=== PATIENT | female | born 1935 | race Caucasian/White ===

== ENCOUNTER 2018-04-15 09:09 | Emergency (ER) | payer MEDICARE, BC ==
[2018-04-15 09:41] LABS: #Basophils 0.1 thou/uL (0.0-0.2); #Lymphocytes 0.9 thou/uL (1.20-3.40); #Monocytes 0.4 thou/uL (0.11-0.59); #Neutrophils 5.9 thou/uL (1.40-6.50); %Basophils 0.7 % (0.0-1.0); %Eosinophils 0.7 % (0.0-10.0); %Lymphocytes 12.7 % (21.0-51.0); %Monocytes 5.2 % (0.0-10.0); %Neutrophils 80.8 % (42.0-75.0); Hemoglobin 13.5 g/dL (12.0-16.0); Mean Corpuscular HGB CONC 34.2 g/dL (32.0-36.0); Mean Corpuscular Hemoglobin 31.8 pg (27.0-31.0); Mean Platelet Volume 6.6 fL (7.4-10.4); Platelet Count 203 thou/uL (130-400); RBC Distribution Width 11.5 % (11.5-14.5); Red Blood Cell (RBC) Count 4.25 mill/uL (4.20-5.40); White Blood Cell (WBC) Count 7.3 thou/uL (4.8-10.8)
[2018-04-15 10:07] LABS: ALT (SGPT) 76 U/L (8-55); AST (SGOT) 57 U/L (5-34); Alkaline Phosphatase 58 U/L (40-150); Anion Gap 10 mmol/L (10-20); BUN (Urea Nitrogen) 18 mg/dL (9.8-20.1); Bilirubin, Total 0.9 mg/dL (0.2-1.2); Calc. Creatinine Clearance 0 mL/min (70-130); Calcium 9.6 mg/dL (7.8-10.44); Carbon Dioxide 25 mmol/L (23-31); Chloride 107 mmol/L (98-107); Estimated GFR-MDRD 52; Glucose 112 mg/dL (83-110); Potassium 4.3 mmol/L (3.5-5.1); Sodium 138 mmol/L (136-145)
[2018-04-15 10:11] LABS: CKMB 1.1 ng/mL (0-6.6); Troponin I Less than 0.010 ng/mL (< 0.028)
[2018-04-15 10:40] LABS: Bilirubin Negative (Negative); Blood, Urine Moderate (Negative); Clarity Cloudy (Clear); Glucose, Urine (Dipstick) Negative (Negative); Hyaline Casts/LPF 4-6 HYALINE CAST LPF (0-3 Hyaline); Leukocyte Large (Negative); Nitrite Positive (Negative); Pathc Cast-AUWi Flag 1.05 (0-2.49); Protein, Urine (Dipstick) Trace mg/dL (Neg-Trace); Specific Gravity, Urine 1.025 (1.005-1.030); Urobilinogen 0.2 mg/dL (0.2-1.0)
[2018-04-15 10:43] LABS: Yeast-AUWi Flag 42.9 (0-25.0)
[2018-04-15 10:53] LABS: Bacteria/HPF 2+ HPF (None Seen); Yeast-All Forms None Seen HPF (None Seen)
--- NOTE | 2018-04-15 11:58 | CT ---
NONCONTRAST HEAD CT: HISTORY: Headache, right-sided. COMPARISON: 06/29/16. FINDINGS: No parenchymal hemorrhage. No extraaxial hematoma. No midline shift. Age-appropriate atrophy. Not e, atrophy involves the frontal lobe greater than the temporal or parietal lobes. Correlate for poss ible Alzheimer's dementia. White matter hypodensities due to chronic small-vessel ischemic changes are noted. No evidence of hy drocephalus. Stable calcifications of the choroid plexus. Adequate aeration of the sinuses and mastoid air cells. Cavernous carotid atherosclerosis is noted. The calvarium is intact. IMPRESSION: 1. Chronic small-vessel ischemic changes of the white matter. 2. Atrophy, similar to the previous examination. 3. No acute cardiopulmonary process. POS: [facility]
[2018-04-15] MEDS ORDERED: Acetaminophen 500 MG TAB ONE (14:03)
== END 2018-04-15 14:09 ==
LOC: ERS 09:09
DX: N30.00 Acute cystitis without hematuria (principal); E78.5 Hyperlipidemia, unspecified; Z79.899 Other long term (current) drug therapy
CPT/HCPCS: 36415; 70450; 80053; 81003; 81015; 82553; 84484; 85025; 85652; 93005; 96365; J1956

== ENCOUNTER 2018-05-13 19:47 | Inpatient (IN) | payer MEDICARE, BC ==
--- NOTE | 2018-05-13 21:18 | RAD ---
RADIOGRAPH LEFT HIP 2 VIEWS: DATE: 05/13/18 TIME: 8:38 p.m. HISTORY: Acute, traumatic, left hip pain due to fall. FINDINGS: There is a comminuted intertrochanteric fracture, with greater than one full shaft width medial displ acement of the distal fragment, and somewhat severe lateral angulation of the fracture apex. There is overlap of fracture fragments (foreshortening). No dislocation of the hip joint. IMPRESSION: Acute, traumatic, comminuted, significantly displaced, and angulated left intertrochanteric femoral f racture. POS: [facility]
[2018-05-13 21:31] LABS: #Eosinphils 0.2 thou/uL (0.0-0.7); #Monocytes 0.5 thou/uL (0.11-0.59); %Basophils 0.3 % (0.0-1.0); %Eosinophils 1.4 % (0.0-10.0); %Lymphocytes 9.7 % (21.0-51.0); %Monocytes 4.5 % (0.0-10.0); %Neutrophils 84.1 % (42.0-75.0); Hemoglobin 11.3 g/dL (12.0-16.0); Mean Corpuscular HGB CONC 33.5 g/dL (32.0-36.0); Mean Corpuscular Hemoglobin 31.5 pg (27.0-31.0); Mean Platelet Volume 6.5 fL (7.4-10.4); Platelet Count 208 thou/uL (130-400); RBC Distribution Width 11.4 % (11.5-14.5); White Blood Cell (WBC) Count 10.7 thou/uL (4.8-10.8)
[2018-05-13 21:34] LABS: INR-International Normal Ratio 1.2; PTT 28.4 SEC (22.9-36.1)
[2018-05-13 21:52] LABS: ALT (SGPT) 43 U/L (8-55); AST (SGOT) 47 U/L (5-34); Albumin 3.3 g/dL (3.4-4.8); Alkaline Phosphatase 64 U/L (40-150); Anion Gap 11 mmol/L (10-20); BUN (Urea Nitrogen) 19 mg/dL (9.8-20.1); Bilirubin, Total 0.5 mg/dL (0.2-1.2); CK (CPK) 85 U/L (29-168); Calc. Creatinine Clearance 0 mL/min (70-130); Calcium 8.5 mg/dL (7.8-10.44); Carbon Dioxide 24 mmol/L (23-31); Chloride 113 mmol/L (98-107); Estimated GFR-MDRD 48; Globulin 2.9 g/dL (2.4-3.5); Glucose 138 mg/dL (83-110); Protein, Total 6.2 g/dL (6.0-8.3); Sodium 144 mmol/L (136-145)
[2018-05-13 21:57] LABS: CKMB 1.5 ng/mL (0-6.6); Troponin I Less than 0.010 ng/mL (< 0.028)
[2018-05-13 23:06] LABS: Magnesium 1.5 mg/dL (1.6-2.6); Phosphorus 3.1 mg/dL (2.3-4.7)
[2018-05-13] MEDS ORDERED: hydrALAZINE 20 MG/ML VIAL SLOW IVP PRN (23:20)
[2018-05-13] MEDS ORDERED: Dextrose 50% Abboject 50 ML SYRINGE SLOW IVP PRN (23:20)
[2018-05-13] MEDS ORDERED: Dextrose 5% in Water 1,000 ML IV PRN (23:20)
[2018-05-13] MEDS: Sodium Chloride 0.9% 1,000 ML IV SCH (23:47)
[2018-05-13] MEDS: Acetaminophen 1,000 MG in Premix Bag 1 BAG IVPB SCH (23:48)
[2018-05-13] MEDS ORDERED: Magnesium 2 GM/NS 0.9% 100 ML 2 GM in Premix Bag 1 BAG IVPB SCH (23:59)
[2018-05-14 00:13] VITALS: BMI 24.5
[2018-05-14] MEDS: Acetaminophen 1,000 MG in Premix Bag 1 BAG IVPB SCH ×4 (05:01→23:01)
[2018-05-14 06:02] LABS: Anion Gap 9 mmol/L (10-20); BUN (Urea Nitrogen) 19 mg/dL (9.8-20.1); Calc. Creatinine Clearance 45 mL/min (70-130); Calcium 8.4 mg/dL (7.8-10.44); Carbon Dioxide 27 mmol/L (23-31); Chloride 110 mmol/L (98-107); Estimated GFR-MDRD 57; Glucose 138 mg/dL (83-110); Magnesium 2.3 mg/dL (1.6-2.6); Phosphorus 3.3 mg/dL (2.3-4.7); Potassium 4.3 mmol/L (3.5-5.1); Sodium 142 mmol/L (136-145)
--- NOTE | 2018-05-14 06:11 | HP ---
DATE OF ADMISSION: 05/13/2018 ADMITTING PHYSICIAN: Dr. Ernie Mares. CONSULTING PHYSICIAN: 1. Hever Rod, orthopedics. 2. Cardiology. HISTORY OF PRESENT ILLNESS: Ms. Saleh 83-year-old female who reports that she was outside walking her dog and when she went to step up on the concrete to enter the house. She saw a snake lying on th e concrete. This startled her and she fell onto her left hip. She did not have any LOC. There were no other reported injuries. She was able to scoot herself into the house after about 1 hour, was ab le to reach the telephone and summon EMS. She was transported to [facility], ere a left intertrochanteric hip fracture was identified. Dr. Rod was consulted by the ER physi [facility]. Trauma services has been consulted for admission and management. PAST MEDICAL HISTORY: 1. GA 2002. 2. Gastroesophageal reflux disease. 3. Hyperlipidemia. 4. Irregular heartbeat. PAST SURGICAL HISTORY: 1. Cardiac stent x2. 2. Appendectomy. 3. Cholecystectomy. 4. Tonsillectomy. 5. 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 6. Patient had cardiac arrest x2 with previous surgery. MEDICATIONS: 1. Crestor 20 mg daily. 2. Metoprolol XR 25 mg daily. 3. Aspirin 81 mg daily. 4. Multivitamin daily. ALLERGIES: PENICILLIN. LABORATORY DATA: EKG paced rhythm, rate 70. LABORATORY STUDIES: CBC: WBC 10.7, RBC 3.60, hemoglobin 11.3, hematocrit 33.8, platelets 208. Coag s: PT 15.0, INR 1.2. Chemistry: Sodium 144, potassium 4.0, chloride 113, carbon dioxide 24, BUN 19 , creatinine 1.09, glucose 138, calcium 8.5, phosphorus 3.1, magnesium 1.5. Total bilirubin 0.5, AST 47, ALT 43, alkaline phosphatase 64, creatine kinase 85, CK-MB 1.5, troponin 0.010. REVIEW OF SYSTEMS: Constitutional: Patient denies chills, fever, recent weight loss, or generalized malaise. HEENT: Denies otorrhea, rhinorrhea, blurred vision, sore throat. Cardiovascular: Denies chest pain, syncope, or palpitations. Reports pacemaker in place. Respiratory: Denies shortness o f breath, cough, wheezing. Gastrointestinal: Denies abdominal pain, nausea, vomiting, diarrhea, or constipation. Musculoskeletal: Reports fall left hip pain. Skin: Denies rash or skin changes. Ne urologic: Denies dizziness, headaches, focal weakness. Heme/Lymphatic: Denies abnormal bleeding. PHYSICAL EXAMINATION: VITAL SIGNS: Blood pressure 143/69, pulse 71, respirations 18, temperature 98.2, O2 sat 94% room air . CONSTITUTIONAL: Elderly female lying on bed, in no acute distress. HEENT: Atraumatic, normocephalic. Trachea midline. No posterior neck tenderness. RESPIRATORY: Bilateral breath sounds clear. No respiratory distress. CARDIOVASCULAR: Regular rate and rhythm. Heart sounds normal. ABDOMEN: Soft, nontender, nondistended. Pelvis stable. Pain with palpation of left hip. EXTREMITIES: Cap refill brisk in all extremities. Neurovascular intact all extremities. External r otation, left hip. NEUROLOGIC: GCS 15. Awake, alert, oriented x3. SKIN: Warm and dry, normal in color. ASSESSMENT AND PLAN: 1. An 83-year-old female, status post ground level fall. 2. Left intertrochanteric hip fracture. 3. History of cardiac arrest with previous surgery. 4. History of myocardial infarction with stent placement and pacemaker. 5. Acute traumatic pain. 6. Hypomagnesemia. PLAN: 1. Admit to surgical floor by Trauma Services. 2. Consult to Dr. Rod, orthopedics. 3. Consult to Cardiology. 4. Correct the abnormal electrolytes. 5. N.p.o., IV fluids, IV analgesia. 6. Physical and occupational therapy with orthopedic restrictions postoperatively. 7. Resume home medications as appropriate. Patient was reviewed with Dr. Mares, who agrees with plan.
[2018-05-14] MEDS ORDERED: Famotidine/PF 20 mg/2ml Vial SLOW IVP SCH (09:00)
[2018-05-14] MEDS: Sodium Chloride 0.9% 1,000 ML IV SCH ×3 (09:30→23:08)
[2018-05-14] MEDS ORDERED: Clindamycin/D5W 900 MG in Premix Bag 1 BAG IVPB SCH (10:30)
--- NOTE | 2018-05-14 10:52 | CON ---
DATE OF CONSULTATION: 05/14/2018 REQUESTING PHYSICIAN: Trauma Service. CONSULTING PHYSICIAN: Dr. Hever Rod REASON FOR CONSULTATION: Left hip fracture. HISTORY OF PRESENT ILLNESS: This is an 83-year-old female who was taking care of a friend's dog yest yamil when she took the dog outside to go the bathroom. She saw a snake lying on the step outside of her house. This startled her and she fell landing onto her left hip. She denies any loss of consci ousness at the time of the fall. She states that she was able to scoot herself inside of her house a nd call for help. She was transported to the [facility] where a left intertroch anteric hip fracture was identified. We have been consulted for this reason. At bedside, the patien t states she is comfortable. She currently resides in [place], [place]. She lives alone and use s a walker for ambulation. Of note, she does state that she recently had a urinary tract infection a nd was admitted into rehab. She was discharged from rehab approximately 8 days ago. She has been go ing to outpatient physical therapy. She normally ambulates without any assistance, but has been usin g a rolling walker because of this reason. She denies any head injury or numbness, tingling in her l eft lower extremity. She denies any other orthopedic injuries at this time. The patient does mention that she has had a history of a hiatal hernia repair in the past at our faci lity by Dr. Garcia. She states that she went into cardiac arrest twice while on the operating room ta ble. Her normal die repairer trimmer dies is Dr. Charles. PAST MEDICAL HISTORY: Significant for a [place] in 2002 with stent placement, gastroesophageal reflux dis ease, hyperlipidemia, hypertension for which the patient has been recently taken off of her beta bloc ker. Irregular heartbeat. Orthopedic surgery to the right wrist. PAST SURGICAL HISTORY: Cardiac stent x2, appendectomy, cholecystectomy, tonsillectomy, gastric volvu donnell repair in 06/2016. Cardiac arrest x2 with previous surgery and right distal radius repair. SOCIAL HISTORY: The patient lives at home alone. She is a previous smoker. Denies any alcohol cons umption or illicit drug use. ALLERGIES: PENICILLIN. REVIEW OF SYSTEMS: A 10 point review of systems was conducted and otherwise negative except for as s tated above. PHYSICAL EXAMINATION: VITAL SIGNS: Temperature 98.0, pulse 68, respiratory rate 16, O2 saturation 97% on 2 liters nasal ca nnula, blood pressure is 130/71. GENERAL: The patient is awake, alert, and oriented. She is in no acute distress. She is pleasant a nd cooperative with exam findings today. There is currently no family present at bedside. HEENT: Head is normocephalic, atraumatic. NECK: Supple. Trachea is midline. Breathing is nonlabored. EXTREMITIES: The left lower extremity is externally rotated at the hip and flex at the knee. The pa sergo has active movement in her foot and toes on the left lower extremity. Foot is warm to touch. Dorsalis pedis pulses 2+. The patient reports sensation is intact. There is no ecchymosis or lesion s to the skin around the left hip site. Remainder of extremity exam is unremarkable. RADIOGRAPHIC FINDINGS: Including views of the left hip obtained in the emergency department show suzette dence of a comminuted and displaced intertrochanteric femoral fracture on the left. These radiograph ic findings have been reviewed with Dr. Rod. ASSESSMENT: Left intertrochanteric femur fracture. PLAN: At this time, I have seen the patient and discussed surgical intervention with her. We did di scuss the need for Cardiology consult due to her history of cardiac arrest. Risks, benefits, and alt ernatives of surgery were discussed at length with the patient today including, but not limited to, m alunion, nonunion, infection, neurovascular compromise. She is in agreement with the plan of care on ce she is cleared by Cardiology to go forward with a left TFN for intertrochanteric femur fracture.
--- NOTE | 2018-05-14 14:54 | CON ---
DATE OF CONSULTATION: 05/14/2018 REASON FOR CONSULTATION: Preoperative evaluation. PRIMARY THRESHING DEPARTMENT SUPERVISOR: Dr. Danilo Charles. HISTORY OF PRESENT ILLNESS: Ms. Saleh is a pleasant 83-year-old white female, who comes to the [facility] after a fall. She was outside saw a snake, fell down and broke her hip. She is scheduled to h ave hip surgery later today. Cardiology is being consulted as there is a history of having apparentl y a code during her last surgery. Ms. Saleh denies any chest pain, tightness, pressure, no shortne ss of breath, no lightheadedness, no syncope or presyncope. This was a fall. She tells me she is de athly afraid of snakes and she just happened to bump in to one and fell down. I have reviewed conner avendañoy the records from her last surgery here in 06/2016, at which point, she apparently had volvulus o f a hiatal hernia. She did have a code green before needing surgery. She actually became hypoxic an d altered had to be intubated emergently and taken to the OR emergently. The OR records do not refle ct any PA arrest or VT arrest of any sort. She apparently was very stable during the procedure. She came out of the OR and was in the ICU for a few days. It took a little bit to extubate her, given h er history of COPD, but there is no mention of her having any type of cardiac arrest. My suspicion i s that there has been confusion between her having the code green before her surgery that provoked he r to have emergent surgery versus her actually having a bad reaction to anesthesia. Since this happe [place], she has had a colonoscopy where she had conscious sedation and she had no problems. She does kenny ve a history of coronary artery disease. She has had 2 stents placed, one back in the year 1999 and again inside the same stent about 5 years ago. She had all this done in [place]. She recently came to the hospital in 2016 for that admission, she did get postop atrial fibrillation and was diagnosed eventually with tachybrady syndrome and had to receive a permanent pacemaker. This was placed about a year ago by Dr. Charles. She otherwise has no other issues for now except for her hip pain from her fracture. PAST MEDICAL HISTORY: 1. Coronary artery disease, status post stenting in 1999 and again about 5 years ago. 2. Gastroesophageal reflux disease. 3. Hyperlipidemia. 4. History of atrial fibrillation postop. 5. Tachybrady syndrome, status post pacemaker placement. PAST SURGICAL HISTORY: 1. Stents x2 as above. 2. Appendectomy. 3. Cholecystectomy. 4. Tonsillectomy. 5. Volvulus repair as above. OUTPATIENT MEDICATIONS: Include; 1. Crestor 20 mg a day. 2. Metoprolol 25 mg a day. 3. Aspirin 81 mg a day. 4. Multivitamin daily. ALLERGIES: PENICILLIN. SOCIAL HISTORY: No alcohol, tobacco, or drugs. FAMILY HISTORY: Noncontributory. REVIEW OF SYSTEMS: A 12-point review of systems was done and is all negative unless stated in the hi story of present illness. PHYSICAL EXAMINATION: VITAL SIGNS: Temperature 97.7, pulse 69, respiration rate 18, satting 96% on 2 liters, and blood pre ssure 130/71. GENERAL: Awake, alert, oriented x3, in no distress. HEENT: Normocephalic, atraumatic. NECK: Supple. LUNGS: Clear. CARDIOVASCULAR: S1and S2. No S3 or S4, no murmurs, no rubs. EXTREMITIES: No edema. SKIN: Warm and dry. LABORATORY WORK: Reviewed. CBC: Hemoglobin 11, hematocrit 33, platelet count of 208. Coags were r eviewed. Chemistries were reviewed. Creatinine 0.94, glucose was fine. Magnesium was 1.5 and has r eplaced up to 2.3. Troponin is negative x1. Albumin of 3.3. Normal sodium and potassium. EKG was reviewed, appears to be atrially paced. ASSESSMENT AND PLAN: 1. Preoperative evaluation: Mrs. Saleh is intermediate risk for an intermediate-risk procedure. I think she may proceed with her surgery. Today, I do not believe there has been a cardiac arrest du ring her surgeries in the past. This is not evidenced on the Anesthesia record what she had was a co corado called before her surgery because of altered mentation and hypoxia, which was thought to be related to her acute volvulus of her hiatal hernia which after repair, she has not had any problems w ith this. We will get an echocardiogram to make sure that her LV function is normal, but she may und ergo procedure otherwise. 2. Coronary artery disease, stable at this time. No evidence of an acute coronary syndrome. No sym ptoms suggestive of angina. 3. Paroxysmal atrial fibrillation: No anticoagulation. She had postop atrial fibrillation. If she develops atrial fibrillation postoperatively after this procedure, we may start her on an amiodarone drip; however, at this time, I would just recommend continue beta ynes therapy. 4. Tachybrady syndrome: Pacemaker seems to be functioning normal on EKG. If we have any suspicion of any pacing by a malfunction, we will ask pharmaceutical reps to come in interrogate the device mos t likely this is a [facility] as it was placed by Dr. Charles. Thank you for letting us participate in the care of your patient. We will follow.
[2018-05-14] MEDS ORDERED: ePHEDrine/0.9% NaCl/PF SYRINGE 50 mg/10 ml ONE (15:43)
[2018-05-14] MEDS ORDERED: PHENYLEPHRINE-NS 100 MCG/ML 10 ML SYRINGE ONE (15:43)
[2018-05-14] MEDS ORDERED: PROPOFOL 200 MG/20 ML VIAL ONE (15:43)
[2018-05-14] MEDS ORDERED: Lidocaine 1% PF 5 ML VIAL ONE (15:43)
[2018-05-14] MEDS ORDERED: Clindamycin/D5W 900 mg/50 ml Premix Bag ONE (16:23)
[2018-05-14] MEDS ORDERED: Fentanyl 100 MCG/2 ML VIAL ONE (17:13)
[2018-05-14] MEDS ORDERED: Ondansetron HCl/PF 4 MG/2 ML Vial IVP PRN (19:15)
[2018-05-14] MEDS ORDERED: Promethazine HCl 25 MG/ML VIAL IM PRN (19:15)
[2018-05-14] MEDS ORDERED: Promethazine HCl 25 MG/ML VIAL SLOW IVP PRN (19:15)
[2018-05-14] MEDS ORDERED: traMADol HCl 50 MG TAB PO PRN ×2 (19:45)
[2018-05-14] MEDS ORDERED: HYDROcodone/Acetaminophen 5/325 mg Tablet PO PRN ×2 (19:45)
[2018-05-14] MEDS: Clindamycin/D5W 900 MG in Premix Bag 1 BAG IVPB SCH (23:01)
[2018-05-15] MEDS: Sodium Chloride 0.9% 1,000 ML IV SCH ×2 (01:52→12:48)
[2018-05-15] MEDS: Clindamycin/D5W 900 MG in Premix Bag 1 BAG IVPB SCH (08:00)
[2018-05-15] MEDS: Famotidine/PF 20 mg/2ml Vial SLOW IVP SCH (08:04)
--- NOTE | 2018-05-15 09:09 | RAD ---
THREE FLUOROSCOPIC INTRAOPERATIVE SPOT IMAGES OF THE LEFT HIP: INDICATION: ORIF of the left hip. COMPARISON: Left hip radiograph dated 05/13/18. FINDINGS: Since the comparison examination, there has been interval placement of a short medullary device trans fixing a reduced right intratrochanteric hip fracture. Fracture alignment is near anatomic. Instrum entation projects in the expected position. Total fluoroscopic time is 60.6 seconds with total exposure 9.11 mGy. IMPRESSION: Open reduction internal fixation of left hip. POS: [facility]
[2018-05-15 09:18] LABS: #Basophils 0.1 thou/uL (0.0-0.2); #Eosinphils 0.1 thou/uL (0.0-0.7); #Lymphocytes 0.8 thou/uL (1.20-3.40); #Monocytes 0.5 thou/uL (0.11-0.59); #Neutrophils 7.7 thou/uL (1.40-6.50); %Basophils 0.7 % (0.0-1.0); %Eosinophils 1.5 % (0.0-10.0); %Monocytes 5.8 % (0.0-10.0); %Neutrophils 83.1 % (42.0-75.0); Hemoglobin 9.3 g/dL (12.0-16.0); Mean Corpuscular HGB CONC 32.6 g/dL (32.0-36.0); Mean Corpuscular Volume 95.3 fL (78.0-98.0); Mean Platelet Volume 6.5 fL (7.4-10.4); Platelet Count 162 thou/uL (130-400); RBC Distribution Width 11.5 % (11.5-14.5); Red Blood Cell (RBC) Count 2.99 mill/uL (4.20-5.40); White Blood Cell (WBC) Count 9.3 thou/uL (4.8-10.8)
--- NOTE | 2018-05-15 13:47 | PDOC.CTH ---
Cardiology Progress Note - Subjective She had her surgery yesterday and did very well. - Objective Vital Signs Temp Pulse Pulse Pulse Resp BP BP 05/15/18 12:04 80 83 127/69 124/70 05/15/18 12:00 98.3 F 80 16 05/15/18 09:07 05/15/18 08:00 98.3 F 89 16 05/15/18 03:49 97.7 F 83 16 BP Pulse Ox Pulse Ox 05/15/18 12:04 05/15/18 12:00 127/72 16 L 05/15/18 09:07 90 L 05/15/18 08:00 134/62 94 L 05/15/18 03:49 124/52 L 98 Weight 134 lb 7.712 oz 05/14/18 05/15/18 05/16/18 06:59 06:59 06:59 Intake Total 900 1700 Balance 900 1700 - Physical Examination General/Neuro: alert & oriented x3, NAD Neck: no JVD present Lungs: CTA, unlabored respirations Heart: RRR Abdomen: NT/ND Extremities: + edema B (trace) - Telemetry Telemetry Rhythm: NSR - Labs Result Diagrams: 05/15/18 09:04 05/14/18 04:58 Troponin/CKMB CK-MB (CK-2) 1.5 ng/mL (0-6.6) 05/13/18 21:19 Troponin I Less than 0.010 ng/mL (< 0.028) 05/13/18 21:19 - Assessment/Plan 1.Hip Fx, s/p repair. 2. CAD, stable, No ACS. PLAN: - No new recs. - Will sign off. Please call with any questions. - She will follow up with her Graphics Editor Dr. Charles in the next 2-3 months.
[2018-05-15] MEDS: Ondansetron ODT 4 MG TAB PO PRN (13:54)
[2018-05-15] MEDS: Ondansetron HCl/PF 4 MG/2 ML Vial IVP PRN (20:37)
[2018-05-16] MEDS: Ondansetron ODT 4 MG TAB PO PRN ×2 (01:18→09:22)
[2018-05-16] MEDS: Ondansetron HCl/PF 4 MG/2 ML Vial IVP PRN (03:08)
--- NOTE | 2018-05-16 05:36 | PRG ---
DATE OF SERVICE: 05/15/2018 SUBJECTIVE: The patient is status post ground level fall in which she sustained a hip fracture which has subsequently undergone operative repair by the orthopedic team yesterday. This morning, she has started to work with physical and occupational therapy. The patient was evaluated also by Cardiolog y, who has signed off due to the stability of the patient's cardiac issues. The patient had no issue s overnight. This morning, she is tolerating a diet and her pain is controlled. PHYSICAL EXAMINATION: VITAL SIGNS: Temperature is 98.3, heart rate 89, blood pressure 134/62, respirations 16, oxygen satu ration is 94% on 4 L via nasal cannula. GENERAL: The patient is resting comfortably in bed. She is awake, alert, and oriented x3. Ortiz coma scale is 15. HEENT: Unremarkable. LUNGS: Clear to auscultation with moderate inspiratory and expiratory effort. HEART: Regular rate and rhythm. ABDOMEN: Soft, flat, nontender with active bowel sounds. EXTREMITIES: Neurovascularly intact x4. Postop dressing is clean, dry, and intact. LABORATORY FINDINGS: White blood cell count 9.3, hemoglobin 9.3, hematocrit 28.5, platelets 162. Th ere are no radiographs to review this morning. ASSESSMENT: 1. Status post fall. 2. Status post open reduction and internal fixation of left hip fracture. PLAN: Plan will be to continue supportive care. We will attempt to wean the patient from her oxygen . We will also check a BNP, saline lock and continue to have physical and occupational therapy work with her. The patient is looking to go to rehab hopefully within the next day or so. The evaluation and examination were discussed with Dr. Gandhi during rounds this morning.
[2018-05-16 05:40] LABS: #Lymphocytes 0.8 thou/uL (1.20-3.40); #Monocytes 0.5 thou/uL (0.11-0.59); #Neutrophils 7.9 thou/uL (1.40-6.50); %Basophils 0.3 % (0.0-1.0); %Eosinophils 0.4 % (0.0-10.0); %Lymphocytes 8.9 % (21.0-51.0); %Monocytes 5.3 % (0.0-10.0); Hemoglobin 8.9 g/dL (12.0-16.0); Mean Corpuscular Volume 93.7 fL (78.0-98.0); Mean Platelet Volume 6.6 fL (7.4-10.4); Platelet Count 197 thou/uL (130-400); RBC Distribution Width 11.5 % (11.5-14.5); Red Blood Cell (RBC) Count 2.97 mill/uL (4.20-5.40); White Blood Cell (WBC) Count 9.3 thou/uL (4.8-10.8)
[2018-05-16 05:46] LABS: Anion Gap 9 mmol/L (10-20); BUN (Urea Nitrogen) 10 mg/dL (9.8-20.1); Calc. Creatinine Clearance 54 mL/min (70-130); Calcium 8.4 mg/dL (7.8-10.44); Carbon Dioxide 28 mmol/L (23-31); Chloride 104 mmol/L (98-107); Estimated GFR-MDRD 70; Glucose 140 mg/dL (83-110); Magnesium 1.6 mg/dL (1.6-2.6); Phosphorus 2.8 mg/dL (2.3-4.7); Potassium 3.9 mmol/L (3.5-5.1); Sodium 137 mmol/L (136-145)
[2018-05-16] MEDS ORDERED: Furosemide 20 MG/2 ML VIAL SLOW IVP SCH (08:00)
--- NOTE | 2018-05-16 08:56 | RAD ---
PORTABLE CHEST: Date: 05/16/18 INDICATION: Hypoxia. COMPARISON: 06/28/16. FINDINGS: Cardiomegaly. Dual lead pacemaker device. The lungs appear clear of infiltrate. There is streaky atel ectasis in the left lung base. No evidence of vascular congestion. No significant effusion. There are chronic lung changes. Calcified granuloma in the right peripheral lung. IMPRESSION: Chronic changes. No evidence of acute process. POS: [facility]
[2018-05-16] MEDS: Famotidine/PF 20 mg/2ml Vial SLOW IVP SCH (11:12)
--- NOTE | 2018-05-16 13:29 | EKG ---
Test Reason : FALL Blood Pressure : / mmHG Vent. Rate : 070 BPM Atrial Rate : 441 BPM P-R Int : 000 ms QRS Dur : 070 ms QT Int : 382 ms P-R-T Axes : 000 -18 029 degrees QTc Int : 412 ms Electronic atrial pacemaker Septal infarct , age undetermined Abnormal ECG Confirmed by AMIRAH VILLAVICENCIO ([id number]), acquisitions editor KORIN ZHAO ([id number]) on 05/16/2018 1:28:52 PM Referred By: Confirmed By:AMIRAH VILLAVICENCIO
[2018-05-16 16:18] VITALS: BP 126/75; TEMP 97.8
[2018-05-16] MEDS ORDERED: Atorvastatin Calcium 20 MG TAB PO SCH (21:00)
[2018-05-16] MEDS ORDERED: Non-Formulary Item 1 EACH (Pitavastatin Calcium [Livalo] 4 MG) PO SCH (21:00)
[2018-05-16] MEDS ORDERED: Amlodipine 5 MG TAB PO SCH (21:00)
[2018-05-17] MEDS ORDERED: Multivitamin W/ Minerals 1 TAB PO SCH (09:00)
[2018-05-17] MEDS ORDERED: Aspirin 81 mg Enteric Coated Tablet PO SCH (09:00)
[2018-05-17] MEDS ORDERED: CRANBERRY PO SCH (09:00)
[2018-05-17] MEDS ORDERED: Calcium Carbonate 500 MG TAB PO SCH (09:00)
[2018-05-17] MEDS ORDERED: ASCORBIC ACID PO SCH (09:00)
[2018-05-17] MEDS ORDERED: Cyanocobalamin (Vitamin B-12) 1,000 MCG TAB PO SCH (09:00)
[2018-05-17] MEDS ORDERED: Famotidine 20 MG TAB PO SCH (09:00)
--- NOTE | 2018-05-18 10:04 | OP ---
DATE OF SURGERY: 05/14/2018 PREOPERATIVE DIAGNOSIS: Left comminuted intertrochanteric femur fracture. POSTOPERATIVE DIAGNOSIS: Left comminuted intertrochanteric femur fracture. SURGICAL PROCEDURE: TFN nail, left femur. ANESTHESIA: General. SURGEON: Hever Rod M.D. CAB STATION ATTENDANT: Jameson Harris PA-C. IMPLANTS: The [employer] TFN set was used with a 10 x 170 mm nail and a 90-mm hip screw. BLOOD LOSS: 100 mL. COMPLICATIONS: None. DRAINS: None. SPECIMEN: None. OUTCOME: Satisfactory. INDICATIONS: The patient is an 83-year-old lady, status post fall sustaining a comminuted and unstab le left intertrochanteric femur fracture. After discussion with patient and her family, we have deci ded to proceed with stabilization with an intramedullary hip screw. Informed consent has been obtain ed. I believe all questions have been answered. DESCRIPTION OF PROCEDURE: The patient was brought to the operating room and a timeout performed foll owed by induction of general anesthesia. Next, patient was positioned on the fracture table with the injured extremity held in longitudinal traction and slight internal rotation with the well leg held in extension and scissored in extension for C-arm imaging of the left hip. Next, a sterile prep and drape was performed of the left lower extremity. A small incision was made just proximal to the tip of the greater trochanter. After skin was sharply incised, dissection was carried down bluntly such that the tip of the greater trochanter could be palpated. Next, a threaded guidewire was passed from the tip of the greater trochanter into the proximal canal of the femur. This was followed by reamin g over this guidewire to obtain a starting point for nail insertion. It should be noted that the fra cture was reduced prior to these sterile prep and drape and held in place with traction. Once the st arting point was obtained, a 10 x 170 mm nail was passed into the canal of the femur and brought to a n appropriate depth. A second incision was made distal to the first and the jig was inserted up agai nst the lateral aspect of the proximal femur and then a threaded guidewire was passed through the lat eral cortex of the femur up into the femoral head approaching a center-center position. Measurement off of this guidewire determined that a 90-mm hip screw would be of appropriate length. As such, the step reamer was passed over the guidewire and then the hip screw inserted. The locking mechanism wa s engaged and then backed off a half turn to allow for sliding of the hip screw. Next, using the rusty e distal incision, a single cross lock screw was inserted in standard fashion. At the completion of this, AP, lateral C-arm images showed acceptable alignment of the fracture. The jig was removed from the nail and the two small incisions irrigated with bulb syringe and then closed in layers with 2-0 Vicryl and rod. Xeroform gauze and tape dressing was applied to the thigh and then patient was t ransferred to recovery room in stable condition. There were no complications and she tolerated the p rocedure well.
== END 2018-05-16 17:17 | DRG 482 ==
LOC: ERS 19:47 → SURG A 21:39
PROVIDERS: ADMIT Specialist; ATTEND Specialist
PROC: 0QS736Z Reposition Left Upper Femur with Intramedullary Internal Fixation Device, Percutaneous Approach (ICD-10-PCS; principal; 2018-05-14)
DX: S72.142A Displaced intertrochanteric fracture of left femur, initial encounter for closed fracture (principal); W18.39XA Other fall on same level, initial encounter; E78.5 Hyperlipidemia, unspecified; K21.9 Gastro-esophageal reflux disease without esophagitis; I25.10 Atherosclerotic heart disease of native coronary artery without angina pectoris; G89.11 Acute pain due to trauma; E83.42 Hypomagnesemia; I10 Essential (primary) hypertension; Z91.81 History of falling; Y92.9 Unspecified place or not applicable; Z95.5 Presence of coronary angioplasty implant and graft; Z88.0 Allergy status to penicillin; I25.2 Old myocardial infarction; Z90.49 Acquired absence of other specified parts of digestive tract; Z95.0 Presence of cardiac pacemaker; Z79.899 Other long term (current) drug therapy; Y93.K1 Activity, walking an animal; Z86.74 Personal history of sudden cardiac arrest; Z87.19 Personal history of other diseases of the digestive system; Z79.82 Long term (current) use of aspirin; Z87.39 Personal history of other diseases of the musculoskeletal system and connective tissue; Z87.891 Personal history of nicotine dependence
CPT/HCPCS: 36415; 71045; 76000; 80048; 80053; 82550; 82553; 83735; 83880; 84100; 84484; 85025; 85610; 85730; 86850; 86900; 86901; 93005; 93306; 96374; 96376; C1713; G8978-GP-CL; G8979-GP-CJ; G8987-GO-CL; G8988-GO-CJ; J0131; J1940; J2001; J2270; J2405; J2704; J3010; J3475; J3490; Q0162; S0028